=== PATIENT | female | born 1930 | race Caucasian/White ===

== ENCOUNTER → 2016-07-30 | Outpatient (CLI) | payer MEDICARE ==
[~2016-07-30] MED LIST: AMIO200T42 PO; APIX5TAB PO; ATOR10TA9 PO; DILT240C PO; FAMO20TA7 PO; LEVO75TA5 PO; MIRT15TA4 PO; OMEP-110 PO; SERT100T5 PO
[2016-07-30 11:47] LABS: BLOOD UREA NITROGEN 12 mg/dL (7-18)
== END | disposition home or self-care (01) ==
LOC: CFH 10:32
PROVIDERS: ATTEND Nurse Practitioner Family
DX: E03.9 Hypothyroidism, unspecified (principal); I42.2 Other hypertrophic cardiomyopathy; I48.0 Paroxysmal atrial fibrillation; I48.2 Chronic atrial fibrillation
CPT/HCPCS: 36415; 80048; 83880